=== PATIENT | male | born 1980 | race Caucasian/White ===

== ENCOUNTER 2021-08-27 20:34 | Emergency (ER) | payer MEDICAID, SELFPAY ==
--- NOTE | ~2021-08-27 | XR_ITS ---
EXAMINATION: XR CHEST CLINICAL INFORMATION: Shortness of breath COMPARISON: None TECHNIQUE: Frontal view of the chest was obtained. FINDINGS: No significant abnormality is noted involving the heart, lungs, mediastinum, bony thorax or soft tissues. XR/XR chest 1V IMPRESSION: No radiographic evidence of pneumonia
[2021-08-27 21:40] LABS: COVID-19 Test Negative (Negative); IDNOW Serial# 9DD0AD1C
[2021-08-27 22:05] VITALS: BP 128/82; PULSE 96; RESP 16; TEMP 37.1; O2SAT 96; BMI 24.4
--- NOTE | 2021-08-27 22:29 | PC.NURSE ---
PT transferred to radiology for chest xray.
--- NOTE | 2021-08-27 23:01 | ED.URI ---
HPI - URI/Sore Throat General Chief Complaint: Upper Respiratory Symptoms Stated Complaint: Fever/Cough Time Seen by Provider: 08/27/21 23:01 History of Present Illness HPI Narrative: 40 years old presents today with having coughing congestion upper respiratory symptoms. Patient not vaccinated for COVID. Patient also is a smoker. Coughing since Sunday. Child positive generalized malaise. MD elicited complaint: cough Related Data Previous Rx's Medication Instructions Recorded azithromycin 250 mg tablet See Rx Instructions .ROUTE 08/27/21 .COMPLEX #6 tab ibuprofen 400 mg tablet 400 mg PO Q6H PRN #20 tab 08/27/21 Allergies Allergy/AdvReac Type Severity Reaction Status Date / Time No Known Allergies Allergy Unverified 08/27/21 22:21 Review of Systems Review of Systems: Positive coughing upper respiratory symptoms Yes all other systems are reviewed and are negative [facility] Past Medical History Attestation statement: The following information was validated with the patient. Medical History No known health problems Social History Social History Advance Directives: No Advance Directives Information Provided: No Physical Exam Vital Signs: Vital Signs: Last Vital Signs Temp 98.8 F 08/27/21 22:05 Pulse 96 08/27/21 22:05 Resp 16 08/27/21 22:05 BP 128/82 08/27/21 22:05 Pulse Ox 96 08/27/21 22:05 Body Mass Index 24.4 Appearance: Alert. Oriented X3. No acute distress. Eyes: Pupils equal, round and reactive to light. ENT: Pharynx normal. Neck: Normal inspection. Neck supple. No lymph nodes noted. No crepitus CVS: Normal heart rate and rhythm. Pulses normal. Normal S1 and S2 Respiratory: No respiratory distress. Breath sounds normal. No Wheezing. No rales Abdomen: Soft and nontender. No rigidity. No distention. good BS x4 Skin: Skin warm and dry. Normal skin color. Normal skin turgor. Extremities: No lower extremity edema. Neurovascular intact to all extremities. No Lacerations. No Rash Neuro: Oriented X 3. No motor deficit. No sensory deficit. Moving all extermities. No slurred speech MDM - URI/Sore Throat MDM Narrative Medical decision making narrative: Patient's chest x-ray grossly negative for any acute evidence of infiltrate. Patient's O2 sats 96% on room air. Will discharge patient home. In stable condition. Medical Records Attestation: I reviewed the patient's medical records. Lab Data Attestation: I reviewed the patient's lab results. Labs: Lab Results 08/27/21 Range/Units 21:03 COVID-19 ([facility]) Negative (Negative) COVID-19 Clin Com See Note Discharge Plan Discharge Clinical Impression: Upper respiratory infection Patient Disposition: Home, Self-Care Instructions: Upper Respiratory Infection (ED) Prescriptions: New azithromycin 250 mg tablet See Rx Instructions .ROUTE .COMPLEX Qty: 6 RF: 0 ibuprofen 400 mg tablet 400 mg PO Q6H PRN (Reason: pain) Qty: 20 RF: 0 Referrals: Physician,None [Primary Care Provider] - 2 days
== END 2021-08-27 23:24 | disposition home or self-care (01) ==
PROVIDERS: Emergency Provider Emergency Medicine Emergency Medical Services
DX: J06.9 Acute upper respiratory infection, unspecified (principal); F17.200 Nicotine dependence, unspecified, uncomplicated; Z20.822 Contact with and (suspected) exposure to COVID-19
CPT/HCPCS: 36415; 71045; 87635; 99283

== ENCOUNTER 2022-02-26 11:41 | Emergency (ER) | payer OTHER, SELFPAY ==
[2022-02-26 11:48] VITALS: BP 138/90; PULSE 79; RESP 18; TEMP 37; O2SAT 97; BMI 24.3
[2022-02-26] MEDS: Diphth,Pertus(ACell),Tet Adult 0.5 ML SYRINGE IM (12:37)
[2022-02-26] MEDS: Lidocaine HCl 2 % MPF 5 ML VIAL INFILTRATI ×2 (12:38)
--- NOTE | 2022-02-26 12:50 | ED.SKABFB ---
HPI - Skin/Abscess/Foreign Bdy General Chief complaint: Skin/Abscess/Foreign Body Stated complaint: Facial swelling Time Seen by Provider: 02/26/22 12:09 Source: patient Mode of arrival: ambulatory Limitations: no limitations History of Present Illness HPI narrative: 41 yoldl male presents to the ED for left sided facial mass that is red, tender, and pus drainage for the past 7 days. patient states it was a pimple first and than he scratched it and that's when symptoms started. Related Data Previous Rx's Medication Instructions Recorded azithromycin 250 mg tablet See Rx Instructions .ROUTE 08/27/21 .COMPLEX #6 tab ibuprofen 400 mg tablet 400 mg PO Q6H PRN #20 tab 08/27/21 cephalexin 500 mg capsule 500 mg PO QID 7 Days #28 cap 02/26/22 doxycycline hyclate 100 mg capsule 100 mg PO BID 7 Days #14 cap 02/26/22 naproxen 500 mg tablet 500 mg PO BID PRN 10 Days #20 tab 02/26/22 Allergies Allergy/AdvReac Type Severity Reaction Status Date / Time No Known Allergies Allergy Verified 02/26/22 11:48 Review of Systems Review of Systems: left facial abscess Yes all other systems are reviewed and are negative PMFSH Past Medical History Medical History No known health problems Social History Social History Advance Directives: No Advance Directives Information Provided: No Physical Exam Vital Signs: Vital Signs: Last Vital Signs Temp 98.6 F 02/26/22 11:48 Pulse 79 02/26/22 11:48 Resp 18 02/26/22 11:48 BP 138/90 H 02/26/22 11:48 Pulse Ox 97 02/26/22 11:48 BMI result Body Mass Index 24.3 Const: General: cooperative, healthy appearing, comfortable, no acute distress, well developed, alert, awake, Physically active and acute distress Orientation/consciousness: patient oriented x3 HEENT: Head: Yes normal to inspection, Yes No palpable skull fracture present, Yes normocephalic, Yes atraumatic and No abrasion Head images: 1. positive for drainage erythematous mass that is tendern on palpation. drainage yellow pus. Negative for submandibular or neck swelling. left side of face negative for swelling. Oral cavity negative for dental/gum/peritonsillar abscess. Small left cervical lymphadenopathy. Eyes: General: appearance normal, both eyes and all related structures Neck: Neck: Yes normal visual inspection, Yes full ROM, Yes no lymphadenopathy, Yes no meningeal signs, Yes trachea midline, Yes supple, No anterior neck swelling and No tender Chest: Chest palpation & inspection: normal inspection of the chest and normal palpation of entire chest wall Resp: Effort & Inspection: normal respiratory effort and able to speak in complete sentences Auscultation: clear to auscultation bilaterally Cardio: Jugular venous distension: no JVD Heart sounds: S1 normal heart sound present and S2 normal heart sound present GI: Inspection: Yes normal to inspection and No abdominal wall ecchymosis Palpation (GI): Soft to palpation, not firm, nontender, no guarding and not rigid : General: No CVA tenderness and Yes no CVA tenderness Back/Spine/Pelvis: Back: no CVA tenderness, No CVA tenderness and No back tenderness Skin: Other: left facial drainag abscess Neuro: General: patient oriented x3, gait normal and no meningeal signs Cranial nerves: Yes CN's II-XII intact bilaterally Extrem: General: Yes normal to inspection and Yes full ROM Psych: Appearance: grossly normal, well kempt and not disheveled Course Course Course Narrative: Bedside ultrasound shows small drainage. Not suspecting for any retropharyngeal or dental/neck abscess. No need for imaging. Negative for signs of respiratory distress, change in voice, or drooling. Tdap ordered. Reevaluation(s) Reevaluation #1: Area cleaned with Betadine and sterile saline. 5% lidocaine 2% used for anesthesia. During lidocaine injection pus was draining more.. I squeezed pus drainage from small abscess with my thumbs. Repeat ultrasound no longer showed any collection. Patient recommend warm compress will be discharged with antibiotics. Incision no longer indicated. Time: 13:08 MDM - Skin/Abscess/Foreign Bdy MDM Narrative Medical decision making narrative: abscess Discharge Plan Discharge Clinical Impression: Abscess of skin or subcutaneous tissue Patient Disposition: Home, Self-Care Instructions: Abscess (ED) Additional Instructions: You will be discharged with 2 antibiotics. Return to the ED immediately for increased swelling of abscess, increased size, facial swelling, neck swelling, drooling, change in voice, chest pain, shortness of breath, or any other concerning symptoms. Recommend warm compress on abscess 4 times a day for 15 minutes. Prescriptions: New cephalexin 500 mg capsule 500 mg PO QID 7 Days Qty: 28 0RF doxycycline hyclate 100 mg capsule 100 mg PO BID 7 Days Qty: 14 0RF naproxen 500 mg tablet 500 mg PO BID PRN (Reason: pain) 10 Days Qty: 20 0RF Rx Instructions: Do not take with other NSAIDs.. No Action azithromycin 250 mg tablet See Rx Instructions .ROUTE .COMPLEX Qty: 6 0RF Rx Instructions: take 500 mg today (day 1), then 250 mg for 4 days (days 2-5) ibuprofen 400 mg tablet 400 mg PO Q6H PRN (Reason: pain) Qty: 20 0RF Stand Alone Forms: Work/School Release Interventions: ED Discharge Assessment Last Done: 02/26/22 13:13 Discharge Date/Time: 02/26/22 13:15 Print Language: Japanese
== END 2022-02-26 13:15 | disposition home or self-care (01) ==
PROVIDERS: Emergency Provider Emergency Medicine
DX: L02.01 Cutaneous abscess of face (principal)
CPT/HCPCS: 90471; 90715; 99284